=== PATIENT | female | born 1975 | race Caucasian/White ===

== ENCOUNTER → 2020-02-26 | Outpatient (CLI) | payer OTHER ==
--- NOTE | 2020-02-26 16:59 | RAD ---
EXAM: THORACIC SPINE 3V, LUMBAR SPINE MIN 4V 02/26/2020 12:00 AM CLINICAL INDICATION:Back pain COMPARISON:None TECHNIQUE:5 views of lumbar spine. 3 views of the thoracic spine. FINDINGS: Thoracic spine: No acute fracture. Alignment is normal. Mild disc space narrowing and small anterior osteophytes in the midthoracic spine. Lumbar spine: There are 5 nonrib-bearing lumbar vertebral bodies. No acute fracture. Alignment is normal. Disc spaces are maintained. There is facet arthrosis at L3-4 through L5-S1. IMPRESSION: 1. No acute fracture of the thoracic or lumbar spine. 2. 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 3. Lower lumbar facet arthrosis. Electronically signed by: Alla Ardon MD (02/26/2020 4:56 PM) [id number]
== END ==
LOC: PMG 15:33
PROVIDERS: ATTEND Physician Assistant Medical
DX: M47.817 Spondylosis without myelopathy or radiculopathy, lumbosacral region (principal); M51.34 Other intervertebral disc degeneration, thoracic region
CPT/HCPCS: 72072; 72110